=== PATIENT | male | born 2000 | race Caucasian/White ===

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

== ENCOUNTER 2023-11-27 23:48 | Day surgery (SDC) | payer BC, OTHER ==
[~2023-11-27] VITALS: Ht 182.9 cm; Wt 122.7 kg
[2023-11-28] VITALS (11 sets, daily range): BP systolic 90–133; BP diastolic 53–74; TEMP 97.3–98.6; O2SAT 93–98
[2023-11-28] MEDS: MORPHINE 4 MG/ML 1ML VIAL IV ONE (00:08)
[2023-11-28] MEDS ORDERED: fentaNYL 100 MCG/2 ML INJECTION As Ordered ONE (00:14)
[2023-11-28] MEDS ORDERED: ROCURONIUM BROMIDE 50MG/5ML VIAL As Ordered ONE (00:14)
[2023-11-28] MEDS ORDERED: MIDAZOLAM INJ 2MG/2ML VIAL As Ordered ONE (00:14)
[2023-11-28] MEDS ORDERED: propofoL 200 MG/20 ML VIAL As Ordered ONE (00:14)
[2023-11-28] MEDS ORDERED: ONDANSETRON 4MG 2ML VIAL As Ordered ONE (00:14)
[2023-11-28] MEDS ORDERED: LIDOCAINE 2% 100MG/5ML SDV (FOR ANES.) As Ordered ONE (00:14)
[2023-11-28] MEDS ORDERED: ACETAMINOPHEN 1000MG 100ML IV BAG As Ordered ONE (00:57)
[2023-11-28] MEDS ORDERED: SUGAMMADEX SODIUM 500 MG/5 ML VIAL (BRIDION) As Ordered ONE (01:07)
[2023-11-28] MEDS ORDERED: KETOROLAC 60MG 2ML VIAL As Ordered ONE (01:08)
[2023-11-28] MEDS ORDERED: fentaNYL 100 MCG/2 ML INJECTION IV PRN (02:05)
[2023-11-28] MEDS ORDERED: MEPERIDINE 25 MG/ML 1ML VIAL IV PRN (02:05)
[2023-11-28] MEDS ORDERED: MORPHINE 4 MG/ML 1ML VIAL IV PRN ×2 (02:05)
[2023-11-28] MEDS ORDERED: METOCLOPRAMIDE INJ 10MG/2ML VIAL IV PRN (02:05)
[2023-11-28] MEDS ORDERED: ONDANSETRON 4MG 2ML VIAL IV PRN ×2 (02:05→06:00)
[2023-11-28] MEDS ORDERED: oxyCODONE 5MG TAB PO PRN (02:05)
[2023-11-28] MEDS ORDERED: HYDROMORPHONE HCL 0.5 MG/ 0.5 ML SYRINGE IV PRN (02:05)
[2023-11-28] MEDS ORDERED: MORPHINE 2 MG/ML 1ML VIAL IV PRN (02:05)
[2023-11-28] MEDS: LR 1,000 ML IV SCH (02:05)
[2023-11-28] MEDS: CIPROFLOXACIN 400 MG in IV 1 EA IV SCH (03:16)
[2023-11-28] MEDS: NS 1,000 ML IV SCH (03:16)
[2023-11-28] MEDS ORDERED: HOME MED LIST COMPLETE! XX SCH (04:05)
[2023-11-28] MEDS: metroNIDAZOLE 500 MG in IV 1 EA IV SCH (05:30)
[2023-11-28] MEDS: KETOROLAC 30 MG/ML 1ML VIAL IV SCH (08:49)
== END 2023-11-28 13:15 | disposition home or self-care (01) ==
LOC: M ED 23:48 → M SDC 23:49 → UNDOADMIN 11-28 02:03 → M ED INP 11-28 02:03 → M MS5PR 11-28 02:53 → M ED INP 11-28 02:53 → M MS5PR 11-28 02:53 → UNDODISIN 11-28 13:15 → M SDC 11-28 13:15
PROVIDERS: ATTEND Surgery
DX: K35.890 Other acute appendicitis without perforation or gangrene (principal); Z88.0 Allergy status to penicillin; E66.9 Obesity, unspecified
CPT/HCPCS: 44970; 88304; 96365; 96367; 96375; 99284; J0131; J0665; J0744; J1100; J1836; J1885; J2250; J2405; J3010

== ENCOUNTER 2024-05-08 08:10 | Day surgery (SDC) | payer BC ==
[~2024-05-08] VITALS: Ht 182.9 cm; Wt 125.5 kg
[~2024-05-08 08:10] MED LIST: ceFAZolin SOD 2 GM in IV 1 EA IV ONE
[2024-05-08] MEDS: CelecoXIB 400 MG CAP PO ONE (09:00)
[2024-05-08] MEDS ORDERED: LR 1,000 ML IV SCH (09:05)
[2024-05-08] MEDS ORDERED: ACETAMINOPHEN 1000MG/100ML IV BAG As Ordered ONE (09:43)
[2024-05-08] MEDS ORDERED: fentaNYL 100 MCG/2 ML INJECTION As Ordered ONE (09:43)
[2024-05-08] MEDS ORDERED: MIDAZOLAM INJ 2MG/2ML VIAL As Ordered ONE (09:43)
[2024-05-08] MEDS ORDERED: propofoL 200 MG/20 ML VIAL As Ordered ONE (09:43)
[2024-05-08] MEDS ORDERED: LIDOCAINE 2% 100MG/5ML SDV (FOR ANES.) As Ordered ONE (09:43)
[2024-05-08] MEDS ORDERED: ONDANSETRON 4MG 2ML VIAL As Ordered ONE (09:44)
[2024-05-08] MEDS: LIDOCAINE W/EPINEPHRINE 1% 20ML VIAL As Ordered ONE (10:11)
[2024-05-08] MEDS ORDERED: KETOROLAC 60MG 2ML VIAL As Ordered ONE (10:23)
[2024-05-08] MEDS: ceFAZolin SOD 3 GM in DEXTROSE 5% (D5W) MINI-BAG PLU 1... IV ONE (10:25)
[2024-05-08] MEDS: LIDOCAINE 1% MDV 20ML VIAL As Ordered ONE (11:07)
[2024-05-08 12:23] VITALS: BP 130/72; TEMP 97.2; O2SAT 97
== END 2024-05-08 12:40 | disposition home or self-care (01) ==
LOC: M SDC 08:10
PROVIDERS: ATTEND Surgery
DX: D22.5 Melanocytic nevi of trunk (principal); Z88.0 Allergy status to penicillin; F17.220 Nicotine dependence, chewing tobacco, uncomplicated
CPT/HCPCS: 11406; 13101; 13102; 88307; J0131; J0665; J0690; J2250; J2405; J3010